=== PATIENT | female | born 1975 | race Caucasian/White ===

== ENCOUNTER 2020-07-28 21:31 | Emergency (ER) | payer OTHER ==
[~2020-07-28] VITALS: Ht 160 cm; Wt 54.4 kg
[2020-07-28 21:35] VITALS: BP_SYST 121
--- NOTE | 2020-07-28 21:38 | NUR ---
Patient to ER bed 03 to gown for evaluation. Side rails up.
--- NOTE | 2020-07-28 21:39 | NUR ---
ER at bedside examining patient.
--- NOTE | 2020-07-28 21:40 | NUR ---
Pt presents to the ER c/o L shoulder burning sensation to the arm and breast. Pt states burning sensation has been been present for 8 days but has worsen in the last two days. Pt also states sore feeling near R axillary. Denies sick contact, medical hx, fever and chills.
[2020-07-28] MEDS ORDERED: IBUPROFEN 600 MG TABLET PO ONE (22:15)
[2020-07-29 00:05] LABS: BASOPHILS # (AUTO) 0.1 K/uL (0.0-0.2); BASOPHILS % (AUTO) 0.8 % (0.0-2.0); EOSINOPHILS # (AUTO) 0.5 K/uL (0.0-0.4); EOSINOPHILS % (AUTO) 5.4 % (0.0-4.0); HEMATOCRIT 35.4 % (36-48); HEMOGLOBIN 12.1 g/dL (12.0-16.0); LYMPHOCYTES # (AUTO) 1.8 K/uL (1.0-5.5); LYMPHOCYTES % (AUTO) 19.6 % (20.5-51.5); MEAN CORPUSCULAR HEMOGLOBIN 31 pg (27-31); MEAN CORPUSCULAR HGB CONC 34 % (32-36); MEAN CORPUSCULAR VOLUME 90 fL (79.0-98.0); MONOCYTES # (AUTO) 0.4 K/uL (0.0-1.0); MONOCYTES % (AUTO) 4.3 % (1.7-9.3); NEUTROPHILS # (AUTO) 6.4 K/uL (1.8-7.7); NEUTROPHILS % (AUTO) 69.9 % (40.0-70.0); PLATELET COUNT (AUTO) 304 K/uL (130-430); RED BLOOD CELL COUNT(AUTO) 3.91 MIL/uL (4.2-6.2); RED CELL DISTRIBUTION WIDTH 13.4 % (9.0-15.0); WHITE BLOOD COUNT (AUTO) 9.1 K/uL (4.8-10.8)
[2020-07-29 00:07] LABS: ALBUMIN 3.5 g/dL (3.4-4.8); CALCIUM 8.6 mg/dL (8.4-11.0); CREATININE 0.94 mg/dL (0.55-1.30); POTASSIUM 3.7 mmol/L (3.5-5.1); TOTAL BILIRUBIN 0.2 mg/dL (0.0-1.0)
--- NOTE | 2020-07-29 00:25 | NUR ---
PT AMBULATED TO CT SCAN.
[2020-07-29 01:11] VITALS: BP_SYST 129
--- NOTE | 2020-07-29 01:11 | NUR ---
Patient given written and verbal discharge instructions and verbalizes understanding. ER MD discussed with patient the results and treatment provided. Patient in stable condition. ID arm band removed. Rx of motrin given. Patient educated on pain management and to follow up with PMD. Opportunity for questions provided and answered. Medication side effect fact sheet provided.
== END 2020-07-29 01:11 | disposition home or self-care (01) ==
LOC: SED 21:31
DX: M54.6 Pain in thoracic spine (principal); R07.89 Other chest pain
CPT/HCPCS: 36415; 70450-TC; 71045; 72125-TC; 80053; 81025; 82550-TC; 84484; 85025; 93005; 99285

== ENCOUNTER 2022-01-14 18:06 | Emergency (ER) | payer OTHER ==
[~2022-01-14] VITALS: Ht 162.6 cm; Wt 54.4 kg
[2022-01-14 18:09] VITALS: BP_SYST 107
[2022-01-14] MEDS ORDERED: METH-800 PO (18:57)
[2022-01-14] MEDS ORDERED: IBUP-1969 PO (18:57)
[2022-01-14] MEDS ORDERED: IBUPROFEN 600 MG TABLET ONE (19:38)
[2022-01-14] MEDS ORDERED: methocarbamoL 500 MG TABLET ONE (19:38)
[2022-01-14 19:44] VITALS: BP_SYST 106
[2022-01-14] MEDS ORDERED: IBUPROFEN 600 MG TABLET PO ONE (19:45)
[2022-01-14] MEDS ORDERED: methocarbamoL 500 MG TABLET PO ONE (19:45)
== END 2022-01-14 19:44 | disposition home or self-care (01) ==
LOC: SED 18:06
DX: S16.1XXA Strain of muscle, fascia and tendon at neck level, initial encounter (principal); X50.9XXA Other and unspecified overexertion or strenuous movements or postures, initial encounter; Y93.89 Activity, other specified; Y92.89 Other specified places as the place of occurrence of the external cause; Y99.8 Other external cause status
CPT/HCPCS: 99283

== ENCOUNTER 2022-06-29 14:37 | Outpatient (CLI) | payer OTHER ==
[~2022-06-29 14:37] MED LIST: IBUP-1969 PO; METH-800 PO
== END 2022-06-29 18:41 | disposition home or self-care (01) ==
LOC: SUS 14:37
PROVIDERS: ATTEND Internal Medicine
DX: E04.2 Nontoxic multinodular goiter (principal)
CPT/HCPCS: 76536-TC

== ENCOUNTER 2022-07-11 14:26 | Outpatient (CLI) | payer OTHER ==
[2022-07-11 15:08] LABS: BASOPHILS # (AUTO) 0.1 K/uL (0.0-0.2); BASOPHILS % (AUTO) 1.2 % (0.0-2.0); EOSINOPHILS # (AUTO) 0.4 K/uL (0.0-0.4); EOSINOPHILS % (AUTO) 5.7 % (0.0-4.0); HEMATOCRIT 37.5 % (36-48); LYMPHOCYTES # (AUTO) 1.8 K/uL (1.0-5.5); LYMPHOCYTES % (AUTO) 24.3 % (20.5-51.5); MEAN CORPUSCULAR VOLUME 90 fL (79.0-98.0); MONOCYTES # (AUTO) 0.4 K/uL (0.0-1.0); MONOCYTES % (AUTO) 4.7 % (1.7-9.3); NEUTROPHILS # (AUTO) 4.9 K/uL (1.8-7.7); NEUTROPHILS % (AUTO) 64.1 % (40.0-70.0); PLATELET COUNT (AUTO) 329 K/uL (130-430); RED BLOOD CELL COUNT(AUTO) 4.19 MIL/uL (4.2-6.2); WHITE BLOOD COUNT (AUTO) 7.6 K/uL (4.8-10.8)
[2022-07-11 15:39] LABS: BILIRUBIN,URINE NEGATIVE (NEGATIVE); CLARITY/URINE CLEAR (CLEAR); COLOR,URINE YELLOW (YELLOW); GLUCOSE,URINE NEGATIVE (NEGATIVE); KETONES,URINE NEGATIVE (NEGATIVE); LEUKOCYTE ESTERASE ,URINE NEGATIVE (NEGATIVE); NITRITE, URINE NEGATIVE (NEGATIVE); PROTEIN URINE NEGATIVE (NEGATIVE); UROBILINOGEN,URINE 0.2 (0.2-1.0)
[2022-07-11 15:47] LABS: BLOOD, URINE TRACE (NEGATIVE)
[2022-07-11 15:52] LABS: ALANINE AMINOTRANSFERASE 18 U/L (12-78); ALBUMIN 3.9 g/dL (3.4-4.8); ANION GAP 11 (5-15); ASPARTATE AMINOTRANSFERASE 17 U/L (10-37); CALCIUM 8.8 mg/dL (8.4-11.0); CHLORIDE 105 mmol/L (98-107); CREATININE 0.72 mg/dL (0.55-1.30); GLUCOSE 92 mg/dL (70-99); POTASSIUM 3.9 mmol/L (3.5-5.1); SODIUM SERUM 138 mmol/L (136-145); THYROID STIMULATING HORMONE 0.65 uIu/mL (0.36-3.74); TOTAL BILIRUBIN 0.4 mg/dL (0.0-1.0); UREA NITROGEN, BLOOD 14 mg/dL (8-21)
[2022-07-11 15:57] LABS: ERYTHROCYTE SEDIMENTATION RATE 9 MM/HR (0-20)
[2022-07-11 15:58] LABS: C-REACTIVE PROTEIN QUANT < 0.2 mg/dL (0-0.5); GFR AFRICAN AMERICAN 112 mL/min (>90)
[2022-07-11 17:10] LABS: BACTERIA,URINE RARE /HPF (None Seen); MUCUS,URINE None Seen /LPF (None Seen); RBC,URINE 0-3 /HPF (0-3); WBC,URINE 0-3 /HPF (0-3)
[2022-07-11 19:12] LABS: CHOLESTEROL 197 mg/dL (<200); HDL CHOLESTEROL 54 mg/dL (>55); LDL CHOLESTEROL 115 mg/dL (<100); TRIGLYCERIDES 211 mg/dL (30-150)
[2022-07-12 08:06] LABS: HEMOGLOBIN A1C 5.6 % (4.8-5.6)
== END 2022-07-11 19:13 | disposition home or self-care (01) ==
LOC: SLB 14:26
PROVIDERS: ATTEND Internal Medicine
DX: Z00.01 Encounter for general adult medical examination with abnormal findings (principal); E03.9 Hypothyroidism, unspecified; E55.9 Vitamin D deficiency, unspecified; E56.9 Vitamin deficiency, unspecified; R59.9 Enlarged lymph nodes, unspecified
CPT/HCPCS: 36415; 80053; 80061; 81000; 82306; 82607; 83036; 84439; 84443; 85025; 85651-TC; 86140

== ENCOUNTER 2022-11-14 13:02 | Outpatient (CLI) | payer OTHER ==
[2022-11-14 13:53] LABS: THYROID STIMULATING HORMONE 0.79 uIu/mL (0.34-4.82)
[2022-11-15 08:06] LABS: T4 (THYROXINE) 6.7 ug/dL (4.5-12.0)
== END 2022-11-14 17:19 | disposition home or self-care (01) ==
LOC: SLB 13:02
PROVIDERS: ATTEND Internal Medicine
DX: E03.9 Hypothyroidism, unspecified (principal); E78.5 Hyperlipidemia, unspecified
CPT/HCPCS: 36415; 80061; 84436; 84443; 86376

== ENCOUNTER 2022-12-25 11:54 | Outpatient (CLI) | payer OTHER | END 2022-12-25 18:12 | disposition home or self-care (01) | LOC: SUS 11:54 | PROVIDERS: ATTEND Internal Medicine | DX: E04.1 Nontoxic single thyroid nodule (principal); N32.89 Other specified disorders of bladder; R94.6 Abnormal results of thyroid function studies; R10.9 Unspecified abdominal pain | CPT/HCPCS: 76536-TC; 76770 ==

== ENCOUNTER 2023-07-17 09:31 | Emergency (ER) | payer OTHER ==
[~2023-07-17] VITALS: Ht 167.6 cm; Wt 54.4 kg
[2023-07-17 09:39] VITALS: BP_SYST 110; PULSE 61; RESP 19; TEMP 97.9; O2SAT 97
[2023-07-17 10:55] LABS: BASOPHILS # (AUTO) 0.1 K/uL (0.0-0.2); BASOPHILS % (AUTO) 1.1 % (0.0-2.0); EOSINOPHILS # (AUTO) 0.4 K/uL (0.0-0.4); EOSINOPHILS % (AUTO) 5.1 % (0.0-4.0); LYMPHOCYTES # (AUTO) 1.3 K/uL (1.0-5.5); LYMPHOCYTES % (AUTO) 17.7 % (20.5-51.5); MEAN CORPUSCULAR HEMOGLOBIN 30 pg (27-31); MEAN CORPUSCULAR HGB CONC 33 % (32-36); MEAN CORPUSCULAR VOLUME 90 fL (79.0-98.0); MONOCYTES # (AUTO) 0.4 K/uL (0.0-1.0); MONOCYTES % (AUTO) 4.8 % (1.7-9.3); NEUTROPHILS # (AUTO) 5.3 K/uL (1.8-7.7); NEUTROPHILS % (AUTO) 71.3 % (40.0-70.0); PLATELET COUNT (AUTO) 312 K/uL (130-430); RED BLOOD CELL COUNT(AUTO) 4.66 MIL/uL (4.2-6.2); RED CELL DISTRIBUTION WIDTH 13.7 % (9.0-15.0); WHITE BLOOD COUNT (AUTO) 7.5 K/uL (4.8-10.8)
[2023-07-17 11:08] LABS: SERUM HCG (QUALITATIVE) NEGATIVE (NEGATIVE)
[2023-07-17 11:15] LABS: ANION GAP 8 (5-15); CALCIUM 8.9 mg/dL (8.4-11.0); CARBON DIOXIDE 27 mmol/L (23-29); CHLORIDE 98 mmol/L (98-107); CREATININE 0.79 mg/dL (0.55-1.30); GFR AFRICAN AMERICAN 100 mL/min (>90); GLUCOSE 98 mg/dL (74-106); POTASSIUM 4.5 mmol/L (3.5-5.1); SODIUM SERUM 133 mmol/L (136-145); UREA NITROGEN, BLOOD 9 mg/dL (8-21)
[2023-07-17 11:20] LABS: BILIRUBIN,URINE NEGATIVE (NEGATIVE); GLUCOSE,URINE NEGATIVE (NEGATIVE); KETONES,URINE NEGATIVE (NEGATIVE); LEUKOCYTE ESTERASE ,URINE 3+ (NEGATIVE); NITRITE, URINE NEGATIVE (NEGATIVE); UROBILINOGEN,URINE 0.2 (0.2-1.0)
[2023-07-17 11:22] LABS: BLOOD, URINE TRACE (NEGATIVE); COLOR,URINE YELLOW (YELLOW); PROTEIN URINE TRACE (NEGATIVE)
[2023-07-17 11:23] LABS: CLARITY/URINE HAZY (CLEAR)
[2023-07-17 11:29] LABS: GFR NON AFRICAN-AMERICAN 83 mL/min (>90)
[2023-07-17 11:30] LABS: BACTERIA,URINE MODERATE /HPF (None Seen); WBC,URINE 20-50 /HPF (0-3)
[2023-07-17] MEDS ORDERED: cefTRIAXone 1 GM in LIDOCAINE 1%, 20 ML MDV 2.1 ML IM ONE (11:45)
[2023-07-17 11:47] LABS: ALANINE AMINOTRANSFERASE 27 U/L (12-78); ALBUMIN 3.9 g/dL (3.4-4.8); ASPARTATE AMINOTRANSFERASE 18 U/L (10-37); TOTAL BILIRUBIN 0.5 mg/dL (0.0-1.0); TOTAL PROTEIN, SERUM 7.7 g/dL (6.4-8.3)
[2023-07-17 12:23] LABS: ACETONE, SERUM NEGATIVE (NEGATIVE)
[2023-07-17] MEDS ORDERED: PHEN-726 PO (12:40)
[2023-07-17] MEDS ORDERED: ONDA-8 TL (12:40)
[2023-07-17] MEDS ORDERED: NITR-85 PO (12:42)
[2023-07-17 13:00] VITALS: BP_SYST 112; PULSE 64; RESP 18; TEMP 98; O2SAT 98
== END 2023-07-17 12:58 | disposition home or self-care (01) ==
LOC: SED 09:31
DX: N39.0 Urinary tract infection, site not specified (principal); N83.201 Unspecified ovarian cyst, right side; R10.30 Lower abdominal pain, unspecified; R30.0 Dysuria; R35.0 Frequency of micturition; Z79.899 Other long term (current) drug therapy
CPT/HCPCS: 99285; 74176; 76856; 80053; 81000; 82009; 84703; 85025; 87086; 36415; 76376; 81025; 96372; 83605; 82397; J0696; J2001